=== PATIENT | female | born 2000 | race Caucasian/White ===

== ENCOUNTER 2020-08-19 07:41 | Emergency (ER) | payer MEDICAID ==
[2020-08-19] MEDS ORDERED: ALBUTEROL 1 PUFF INH STA (08:11)
[2020-08-19] MEDS ORDERED: predniSONE 20 MG TABLET PO STA (08:24)
--- NOTE | 2020-08-19 09:07 | ED Physician Documentation ---
History of Present Illness - Stated complaint Stated Complaint: SOA/CONGESTION - Chief complaint Chief Complaint: Heent - History obtained from History obtained from: Patient - History of Present Illness Pain level max: 0 Pain level now: 0 - Additonal information Additional information: 19-year-old female with a history of asthma presents to the emergency department with increasing wheezing over the past few days. She states she had had issues for the past 2 years. Mild cough. No fevers. The cough has been for 2 to 3 months. She states that she does smoke and vape. Nothing makes it better or worse. She is out of her albuterol inhaler and albuterol for nebulizer. Denies any possibility of . Review of Systems Constitutional: denies: Fever, Chills Respiratory: denies: Cough GI: denies: Nausea, Vomiting, Diarrhea Skin: denies: Rash Musculoskeletal: denies: Neck pain, Back pain Neurologic: denies: Headache PD PAST MEDICAL HISTORY - Past Medical History Past Medical History: Yes Respiratory: Asthma - Present Medications Home Medications: Ambulatory Orders Medication Instructions Recorded Confirmed Albuterol 2.5 mg INH Q4H PRN #30 ml 08/19/20 Albuterol Sulf [Ventolin Hfa 1 - 2 puffs INH Q4HR PRN #1 inhaler 08/19/20 Inhaler] predniSONE [Deltasone] 10 mg PO [id number] #42 tab 08/19/20 - Allergies Allergies/Adverse Reactions: Allergies Allergy/AdvReac Type Severity Reaction Status Date / Time No Known Drug Allergies Allergy Verified 08/19/20 07:51 - Social History Does the pt smoke?: No Smoking Status: Never smoker PD ED PE NORMAL - Vitals Vital signs reviewed: Yes - General General: Alert and oriented X 3, No acute distress, Well developed/nourished - HEENT HEENT: Moist mucous membranes, Other (Normal phonation. No stridor) - Neck Neck: Supple, no meningeal sign - Cardiac Cardiac: RRR, Strong equal pulses - Respiratory Respiratory: No respiratory distress, Other (Diffuse wheezing bilaterally) - Abdomen Abdomen: Soft, Non tender, Non distended - Derm Derm: Warm and dry - Extremities Extremities: No edema - Neuro Neuro: Alert and oriented X 3 - Psych Psych: Normal mood, Normal affect Results - Vitals Vitals: Vital Signs - 24 hr 08/19/20 08/19/20 08/19/20 07:48 08:30 10:27 Temperature 36.5 C 36.3 C L Heart Rate 124 H 104 H 88 Respiratory 20 20 19 Rate Blood Pressure 150/135 H 95/67 O2 Saturation 95 100 Oxygen O2 Source Room air - Rads (name of study) Chest x-ray Radiology: Prelim report reviewed, EMP read contemporaneously, See rad report PD MEDICAL DECISION MAKING - ED course Complexity details: reviewed results, re-evaluated patient, considered differential, d/w patient ED course: No acute findings on x-ray. Feels much better after steroids and albuterol treatment. Will refill an inhaler for her and prescribe albuterol for her nebulizer. We will place her on a 10-day steroid taper as well. Patient counseled regarding signs and symptoms for which I believe and urgent re- evaluation would be necessary. Patient with good understanding of and agreement to plan and is comfortable going home at this time This document was made in part using voice recognition software. While efforts are made to proofread this document, sound alike and grammatical errors may occur. Departure - Departure Disposition: 01 Home, Self Care Clinical Impression: Asthma exacerbation Qualifiers: Asthma severity: unspecified severity Asthma persistence: unspecified Qualified Code(s): J45.901 - Unspecified asthma with (acute) exacerbation Condition: Good Instructions: ED Reactive Airway Disease Follow-Up: your,doctor in 1 week [Other] Prescriptions: Albuterol Sulf [Ventolin Hfa Inhaler] 1 - 2 puffs INH Q4HR PRN #1 inhaler PRN Reason: Shortness Of Air/Wheezing Albuterol 2.5 mg INH Q4H PRN #30 ml PRN Reason: Wheezing predniSONE [Deltasone] 10 mg PO [id number] #42 tab Comments: Patient's as prescribed. Return if you worsen. Follow-up with your doctor for further care. Discharge Date/Time: 08/19/20 10:27
[2020-08-19 10:29] VITALS: BP 95/67
--- NOTE | 2020-08-19 10:41 | XRAY Report ---
PROCEDURE: Chest 2 View X-Ray INDICATIONS: wheezing, cough TECHNIQUE: 2 views of the chest. COMPARISON: None. FINDINGS: Surgical changes and devices: None. Lungs and pleura: No pleural effusions or pneumothorax. Lungs are clear. Mediastinum: Mediastinal contours are normal. Heart size is normal. Bones and chest wall: No suspicious bony abnormalities. Soft tissues appear unremarkable. IMPRESSION: No acute cardiopulmonary abnormality. Reviewed by: Mulugeta Tatum MD on 08/19/2020 10:40 AM [facility] Approved by: Mulugeta Tatum MD on 08/19/2020 10:40 AM [facility] Station ID: [id number]
== END 2020-08-19 10:27 | disposition home or self-care (01) ==
LOC: ED 07:41
DX: J45.901 Unspecified asthma with (acute) exacerbation (principal); F17.290 Nicotine dependence, other tobacco product, uncomplicated; Z20.822 Contact with and (suspected) exposure to COVID-19
CPT/HCPCS: 71046; 87635; 94640; 99284; J7512

== ENCOUNTER 2021-08-02 16:21 | Inpatient (IN) | payer MEDICAID ==
[2021-08-02 17:29] LABS: RUPTURE OF MEMBRANES PLUS POSITIVE (NEGATIVE)
--- NOTE | 2021-08-02 17:52 | HISTORY & PHYSICAL EXAMINATION ---
Admit History - Visit Reason Visit Reason: Contractions - : 2 Parity: 0 : 1 Care: positive: Other ([place], [facility]) Smoking Status: Former smoker - Mother's Labs Mother's Blood Type: positive: O Mother's RH: positive: Positive GBS: positive: Group B Step Negative - Other Maternal History Other Maternal History: HPI: 20-year-old at 39 weeks 2 days gestation by 20-week ultrasound per outside records from [place]. She presents today with contractions that started yesterday. She has not timing them, but she says they happen every several minutes. She has good movement. Small amount of leaking fluid, questionable whether this is water or urine. She thinks she started feeling this sometime yesterday afternoon. No GUNN/BV or RUQP. No vaginal bleeding. Denies nausea and vomiting. Denies urinary urgency or dysuria. All other symptoms reviewed and were negative except per HPI. Course Limited care, initially at [facility] then follow-up in [place]. Was admitted for drug detox in the middle of her and was discharged several weeks ago. Dating ultrasound 20 weeks 0 days labs RPR: Nonreactive Syphilis: Nonreactive HBsAg: Negative HIV: Negative GC/CT: Negative/negative GBS: Negative PMH Mild, intermittent asthma PSH Denies OB History 1. SAB SH Recent relapse with heroin, last use yesterday. Methamphetamine use several da ys ago. Planning on inpatient rehab after baby is born. Former smoker. No current alcohol use. Currently homeless, living with a friend. Father the baby is not involved. Family History Denies pertinent history Allergies Denies allergy Medications Albuterol PRN vitamins Ferrous sulfate Physical exam: General: Alert, oriented, no acute distress Head: Normal cephalic atraumatic Eyes: PERRLA, extraocular motions intact. Respiratory: Normal rate of respiration. No accessory muscle use, normal respiratory effort. Cardiovascular: Regular rate and rhythm Abdomen: Gravid, nontender, nondistended Extremities: Normal range of motion Neuro: Oriented x3. Normal movements Psych: Appropriate mood and affect. Normal judgment and insight SVE: 4/80/-3 FHT: 130 bpm baseline, moderate variability, accelerations present, No decelerations [place]: Occasional Labs ROM plus: Positive Plan 20-year-old at 39 weeks 2 days gestation by 20-week ultrasound admitted for term labor/SROM 1. Term labor -Admit to L&D, admit labs, epidural at patient's request, anticipate -Continous monitoring. 2. SROM -Questionable when this happened, possibly prolonged rupture, no signs of compromise at this time 3. Gestational hypertension -Elevated previously in records. Today is 132/91, but actively laboring. -CBC, CMP, Urine protein to creatinine ratio ordered 3. Opioid use disorder -Currently taking Suboxone 8 mg twice daily -We will check with pharmacy for dosing. Patient does have her own supply for labeling. -Did relapse on heroin. Last use yesterday. -Plan for inpatient treatment after baby is born. -Patient consented to urine tox screen. This is pending at this time. 4. Methamphetamine abuse -Last dose several days ago. Infrequent use. Has been trying to quit 5. Mild, intermittent asthma -Albuterol as needed 6. Homelessness -Currently staying with friend 7. Limited care 8. Recent Covid infection -Tested positive 07/20/2021 9. Anemia: Hematocrit on 06/16/2021 of 33.7. Admit labs pending. Meds/Allgy - Home Medications Home Medications: Ambulatory Orders Medication Instructions Recorded Confirmed Albuterol 2.5 mg INH Q4H PRN #30 ml 08/19/20 Albuterol Sulf [Ventolin Hfa 1 - 2 puffs INH Q4HR PRN #1 inhaler 08/19/20 Inhaler] predniSONE [Deltasone] 10 mg PO [id number] #42 tab 08/19/20 - Allergies Allergies/Adverse Reactions: Allergies Allergy/AdvReac Type Severity Reaction Status Date / Time No Known Drug Allergies Allergy Verified 08/19/20 07:51 Physical - Abdominal Exam Vital Signs: Temp Pulse Resp BP Pulse Ox 98 F 104 H 18 137/85 H 08/02/21 16:34 08/02/21 16:34 08/02/21 16:34 08/02/21 16:45
[2021-08-02] MEDS ORDERED: TERBUTALINE 1 MG/ML VIAL SUBQ PRN (18:15)
[2021-08-02] MEDS ORDERED: LIDOCAINE-MPF 1% 30 ML VIAL ID PRN (18:15)
[2021-08-02] MEDS ORDERED: CARBOPROST TROMETHAMINE 250 MCG/ML AMP IM PRN (18:15)
[2021-08-02] MEDS ORDERED: SODIUM CHLORIDE FLUSH 0.9% 10 ML SYRINGE IVP PRN (18:15)
[2021-08-02] MEDS ORDERED: LABETALOL 20 MG/4 ML SYRINGE IVP PRN ×2 (18:15)
[2021-08-02] MEDS ORDERED: miSOPROStoL 200 MCG TABLET PR PRN (18:15)
[2021-08-02] MEDS ORDERED: METHYLERGONOVINE 0.2 MG/ML VIAL IM PRN (18:15)
[2021-08-02] MEDS ORDERED: miSOPROStoL 200 MCG TABLET BC PRN (18:15)
[2021-08-02] MEDS ORDERED: TRANEXAMIC ACID IN NACL 1,000 MG/100 ML BAG IV PRN (18:15)
[2021-08-02] MEDS ORDERED: hydrALAZINE INJ 20 MG/ML VIAL IVP PRN (18:15)
[2021-08-02] MEDS ORDERED: OXYTOCIN 10 UNIT/ML VIAL IM PRN (18:15)
[2021-08-02] MEDS ORDERED: ONDANSETRON 4 MG/2 ML VIAL IVP PRN ×2 (18:15→20:49)
[2021-08-02] MEDS ORDERED: OXYTOCIN/SODIUM CHLORIDE 500 ML IV PRN (18:15)
[2021-08-02 18:26] LABS: MUDS CUTOFF CONCENTRATIONS CUTOFF CONC BELOW:
[2021-08-02 18:27] LABS: BASOPHILS % (AUTO) 0.2 %; EOSINOPHILS # (AUTO) 0.1 10^3/uL (0.0-0.7); EOSINOPHILS % (AUTO) 0.6 %; HCT - HEMATOCRIT 35.4 % (37.0-47.0); HGB - HEMOGLOBIN 11.4 g/dL (12.0-16.0); LYMPHOCYTES # (AUTO) 1.2 10^3/uL (1.5-3.5); LYMPHOCYTES % (AUTO) 9.6 %; MEAN CORPUSCULAR HEMOGLOBIN 29.2 pg (27.0-31.0); MEAN CORPUSCULAR HGB CONC 32.2 g/dL (32.0-36.0); MEAN CORPUSCULAR VOLUME 90.5 fL (81.0-99.0); MONOCYTES # (AUTO) 0.8 10^3/uL (0.0-1.0); MONOCYTES % (AUTO) 6.1 %; NEUTROPHILS # (AUTO) 10.4 10^3/uL (1.5-6.6); NEUTROPHILS % (AUTO) 83.2 %; PLT - PLATELET COUNT 196 10^3/uL (130-450); RED BLOOD COUNT 3.91 10^6/uL (4.20-5.40); RED CELL DISTRIBUTION WIDTH 18.9 % (12.0-15.0); WHITE BLOOD COUNT 12.4 x10^3/uL (4.8-10.8)
[2021-08-02] MEDS: fentaNYL 100 MCG/2 ML VIAL IVP PRN (18:42)
[2021-08-02 18:49] LABS: ALBUMIN 2.5 g/dL (3.2-5.5); ALBUMIN/GLOBULIN RATIO 0.7 (1.0-2.2); BILIRUBIN,TOTAL 0.3 mg/dL (0.2-1.0); CALCIUM 8.8 mg/dL (8.5-10.3); CREATININE 0.5 mg/dL (0.4-1.0); POTASSIUM 3.8 mmol/L (3.5-5.0)
[2021-08-02 18:52] LABS: CREATININE,URINE 99.8 mg/dL; PROTEIN/CREATININE RATIO,URINE 0.9 (<=0.2)
[2021-08-02 18:54] LABS: AMPHETAMINE SCREEN,URINE POSITIVE (NEGATIVE); COCAINE SCREEN URINE NEGATIVE (NEGATIVE); METHAMPHETAMINES SCREEN, URINE POSITIVE (NEGATIVE); OPIATE SCREEN, URINE POSITIVE (NEGATIVE); THC CANNABINOID SCREEN, URINE NEGATIVE (NEGATIVE)
[2021-08-02 18:55] LABS: BARBITURATE SCREEN,UR NEGATIVE (NEGATIVE); BENZODIAZEPINES SCREEN, URINE NEGATIVE (NEGATIVE); METHADONE SCREEN, URINE NEGATIVE (NEGATIVE); OXYCODONE SCREEN, URINE NEGATIVE (NEGATIVE); PROPOXYPHENE SCREEN, URINE NEGATIVE (NEGATIVE); TRICYCLIC ANTIDEPRESSANT,URINE NEGATIVE (NEGATIVE)
[2021-08-02] MEDS ORDERED: LACTATED RINGERS 1,000 ML IV SCH (19:00)
[2021-08-02] MEDS ORDERED: SODIUM CHLORIDE FLUSH 0.9% 10 ML SYRINGE IVP SCH (19:00)
[2021-08-02] MEDS ORDERED: ROPIVACAINE 0.2% 200 MG/100 ML BAG EP ONE (20:08)
--- NOTE | 2021-08-02 20:32 | PROVIDER PROGRESS NOTE ---
Labor Progress Note - Uterine Monitoring Uterine Monitoring Mode: positive: External toco Contraction Frequency (min/apart): 6-8 minutes, but difficult to pickup. Contraction Intensity: positive: Moderate Uterine Resting Tone: positive: Soft - Monitoring Monitor Mode: positive: External ultrasound Heart Rate Baseline: 130 Heart Rate Variability: positive: Absent; amplitude undetectable Accelerations: positive: Present, 15x15 Decelerations: positive: Variable Strip Review: positive: Category II - Vaginal Exam Dilation (in cm): 5 Effacement (%): 80 Station: -3 - Labor Progress Note Labor Progress Note/Additional Text: Overall category one. Had one random variable deceleration. Overall reassuring. Getting epidural for pain control. Patient positive for multiple substances. Meets criteria for preeclampsia by blood pressure and urine protein to creatinine ratio. Likely compounded by drug use. Will start oxytocin if she stops progressing as contractions are rather spaced.
[2021-08-02] MEDS ORDERED: diphenhydrAMINE INJ 50 MG/ML VIAL IVP PRN (20:49)
[2021-08-02] MEDS ORDERED: ROPIVACAINE 0.2% 200 MG/100 ML BAG EP PRN (20:49)
[2021-08-02] MEDS ORDERED: NALBUPHINE 10 MG/ML AMP IVP PRN (20:49)
[2021-08-02] MEDS ORDERED: NALOXONE 0.4 MG/ML VIAL IVP PRN (20:49)
--- NOTE | 2021-08-02 20:54 | ANESTHESIA ---
Pre-Anesthesia VS, & Labs - Diagnosis labor - Procedure epidural Vital Signs: Temp Pulse Resp BP Pulse Ox 36.4 C L 104 H 18 137/85 H 08/02/21 18:20 08/02/21 16:34 08/02/21 16:34 08/02/21 16:45 Height: 5 ft 7 in Weight (kg): 86.183 kg Body Mass Index: 29.7 BMI Classification: Overweight - NPO Other (clears) - Is Patient ?: Yes - Lab Results Current Lab Results: Laboratory Tests 08/02/21 18:26: Sodium 135, Potassium 3.8, Chloride 103, Carbon Dioxide 24, Anion Gap 8.0, BUN 8, Creatinine 0.5, Estimated GFR (MDRD) 154, Glucose 109 H, Calcium 8.8, Total Bilirubin 0.3, AST 18, ALT 14, Alkaline Phosphatase 168 H, Total Protein 6.0 L, Albumin 2.5 L, Globulin 3.5, Albumin/Globulin Ratio 0.7 L 08/02/21 18:20: Urine Opiates Screen POSITIVE H, Ur Oxycodone Screen NEGATIVE, Urine Methadone Screen NEGATIVE, Ur Propoxyphene Screen NEGATIVE, Ur Barbiturate s Screen NEGATIVE, Ur Tricyclics Screen NEGATIVE, Ur Phencyclidine Scrn NEGATIVE, Ur Amphetamine Screen POSITIVE H, U Methamphetamines Scrn POSITIVE H, U Benzodiazepines Scrn NEGATIVE, Urine Cocaine Screen NEGATIVE, U Cannabinoids Screen NEGATIVE 08/02/21 18:00: Blood Type O POSITIVE, Antibody Screen NEGATIVE 08/02/21 18:00: WBC 12.4 H, RBC 3.91 L, Hgb 11.4 L, Hct 35.4 L, MCV 90.5, MCH 29.2, MCHC 32.2, RDW 18.9 H, Plt Count 196, MPV 11.0 H, Neut # (Auto) 10.4 H, Lymph # (Auto) 1.2 L, Banks # (Auto) 0.8, Eos # (Auto) 0.1, Baso # (Auto) 0.0, Absolute Nucleated RBC 0.00, Nucleated RBC % 0.0 Fish Bones: 08/02/21 18:00 08/02/21 18:26 Home Medications and Allergies Active Medications Carboprost Tromethamine (Carboprost Tromethamine 250 Mcg/Ml Amp) 250 mcg IM .ONCE PRN PRN Reason: Hemorrhage Diphenhydramine HCl (Diphenhydramine Inj 50 Mg/Ml Vial) 12.5 - 25 mg IVP Q6HR PRN PRN Reason: ITCHING Fentanyl (Fentanyl 100 Mcg/2 Ml Vial) 50 mcg IVP Q1H PRN PRN Reason: Severe Pain (score 7-10) Last Admin: 08/02/21 18:42 Dose: 50 mcg Hydralazine HCl (Hydralazine Inj 20 Mg/Ml Vial) 10 mg IVP .ONCE PRN; Protocol PRN Reason: Step 9 of Labetalol protocol Stop: 08/07/21 18:16 Oxytocin/Sodium Chloride (Pitocin/Sodium Chloride) 500 mls @ 999 mls/hr IV PRN PRN; Protocol PRN Reason: POST- HEMORR PREVENTION Tranexamic Acid (Tranexamic 1,000 Mg/100ml-Nacl) 1,000 mg in 100 mls @ 600 mls/hr IV Q30M PRN PRN Reason: EBL >1200mL and within 3hr Lactated Ringer's (Lr) 1,000 mls @ 125 mls/hr IV .Q8H ANALI Last Admin: 08/02/21 18:43 Dose: 125 mls/hr Ropivacaine (Naropin 0.2%) 200 mg in 100 mls @ 0 mls/hr EP PRN PRN; Protocol PRN Reason: PAIN Labetalol HCl (Labetalol 20 Mg/4 Ml Syringe) 20 - 80 mg IVP Q10M PRN; Protocol PRN Reason: SBP> or= 160 OR DBP> or= 110 Labetalol HCl (Labetalol 20 Mg/4 Ml Syringe) 20 mg IVP .ONCE PRN; Protocol PRN Reason: SBP> or= 160 OR DBP> or= 110 Lidocaine HCl (Lidocaine-Mpf 1% 30 Ml Vial) 30 ml ID ONCE PRN PRN Reason: PERINEAL REPAIR Stop: 08/03/21 18:16 Methylergonovine Maleate (Methylergonovine 0.2 Mg/Ml Vial) 0.2 mg IM .ONCE PRN PRN Reason: Hemorrhage Misoprostol (Misoprostol 200 Mcg Tablet) 600 mcg BC .ONCE PRN PRN Reason: Hemorrhage Misoprostol (Misoprostol 200 Mcg Tablet) 800 mcg DC .ONCE PRN PRN Reason: Hemorrhage Nalbuphine HCl (Nalbuphine 10 Mg/Ml Amp) 2.5 - 5 mg IVP Q4H PRN PRN Reason: ITCHING Naloxone HCl (Naloxone 0.4 Mg/Ml Vial) 0.1 mg IVP Q2M PRN PRN Reason: RR<8 Ondansetron HCl (Ondansetron 4 Mg/2 Ml Vial) 4 mg IVP PRN PRN PRN Reason: Nausea / Vomiting Ondansetron HCl (Ondansetron 4 Mg/2 Ml Vial) 4 mg IVP Q6HR PRN PRN Reason: Nausea / Vomiting Oxytocin (Oxytocin 10 Unit/Ml Vial) 10 unit IM .ONCE PRN PRN Reason: Step One if no IV access. Sodium Chloride (Sodium Chloride Flush 0.9% 10 Ml Syringe) 10 ml IVP PRN PRN PRN Reason: NEEDED PER PROVIDER ORDERS Sodium Chloride (Sodium Chloride Flush 0.9% 10 Ml Syringe) 10 ml IVP Q8H ANALI Terbutaline Sulfate (Terbutaline 1 Mg/Ml Vial) 0.25 mg SUBQ ONCE PRN PRN Reason: Tachystole Stop: 08/04/21 18:14 Allergies/Adverse Reactions: Allergies Allergy/AdvReac Type Severity Reaction Status Date / Time No Known Drug Allergies Allergy Verified 08/19/20 07:51 Anes History & Medical History - Anesthetic History Anesthesia Complications: reports: No previous complications - Medical History Cardiovascular: reports: None Pulmonary: reports: Asthma Smoking Status: Former smoker Psychosocial: reports: Amphetamine, Opioid History of Cancer?: No - Obstetrical History : 2 Parity: 0 Complications: reports: Other (Drug abuse) Exam General: Alert, Oriented x3, Cooperative Dental: WNL Mouth Opening: Greater than 4 Fingerbreadths Neck Mobility: Normal Mallampati classification: II Respiratory: Lungs clear Cardiovascular: Regular rate Cognitive Status: Within normal limits Plan Anesthesia Type: Epidural Consent for Procedure(s) Verified and Reviewed: Yes Code Status: Attempt Resuscitation ASA classification: 3-Severe systemic disease (active drug abuse) Is this case an emergency?: No
--- NOTE | 2021-08-02 23:22 | PROVIDER PROGRESS NOTE ---
Labor Progress Note - Uterine Monitoring Uterine Monitoring Mode: positive: External toco Contraction Frequency (min/apart): 5-8 Contraction Intensity: positive: Moderate Uterine Resting Tone: positive: Soft - Monitoring Monitor Mode: positive: External ultrasound Heart Rate Baseline: 130 Heart Rate Variability: positive: Moderate (6-25 bmp) Accelerations: positive: Present, 15x15 Decelerations: positive: Variable Strip Review: positive: Category II - Vaginal Exam Dilation (in cm): 6 Effacement (%): 90 Station: -2 Cervical Position: Midposition - Labor Progress Note Labor Progress Note/Additional Text: Patient currently sleeping. Did have some one. Followed by agitation approx imately 1 hour ago. Took her home Suboxone, but when advised not to take home medications, later said she spit this out. We did have trouble getting Suboxone ordered from the [employer] as it was not on formulary. Since then, have obtain access, but patient appears to have absorbed much of the pill as she is again somnolent and not showing signs of opioid withdrawal at this time. This may be compounded with methamphetamine withdrawal if she is indeed withdrawing from both. Blood pressure currently 121/69. Pulse of 88. Normal respirations 100% O2. Patient did have several significant variables while agitated, but since relaxing has normalized. Contractions still every 5 to 8 minutes, but changing her cervix. Will allow patient to rest and recheck in several hours. As long she is progressing, we will continue the course with expectant management.
--- NOTE | 2021-08-03 04:37 | PROVIDER PROGRESS NOTE ---
Labor Progress Note - Uterine Monitoring Uterine Monitoring Mode: positive: External toco Contraction Frequency (min/apart): 2-6 Contraction Intensity: positive: Strong Uterine Resting Tone: positive: Soft - Monitoring Monitor Mode: positive: External ultrasound Heart Rate Baseline: 130 Heart Rate Variability: positive: Moderate (6-25 bmp) Accelerations: positive: Present, 15x15 Decelerations: positive: Variable Strip Review: positive: Category II - Vaginal Exam Dilation (in cm): 7 Effacement (%): 90 Station: -2 - Labor Progress Note Labor Progress Note/Additional Text: Called from the physician call room to the patient's bedside for repetitive deep variable decelerations and prolonged deceleration. IUPC and FSE were placed. Patient recovered with position changes from the prolonged deceleration, but variable decelerations remain. Amnioinfusion was then started. She received 8 300 mL bolus followed by 200 mL/h. She appears to be having some resolution of her decelerations, but was counseled on the benefits as well as alternatives and the risks were discussed including but not limited to infection, bleeding that may require blood products or hysterectomy for life saving measures, injury to surrounding organs including but not limited to bowel, bladder, ureters, tubes and ovaries and/or the baby. Should injury occur it could require longer/additional surgery to repair. The patient denied having any questions. Will plan for recovery and resolution of variable decelerations and plan for oxytocin administration when appropriate for hypotonic uterine contractions.
[2021-08-03] MEDS ORDERED: OXYTOCIN/SODIUM CHLORIDE 500 ML IV SCH (06:00)
[2021-08-03] MEDS: fentaNYL 100 MCG/2 ML VIAL IVP PRN (06:24)
--- NOTE | 2021-08-03 07:05 | PROVIDER PROGRESS NOTE ---
Labor Progress Note - Uterine Monitoring Uterine Monitoring Mode: positive: IUPC Contraction Frequency (min/apart): 3-5 with occasional coupling Contraction Intensity: positive: Strong Uterine Resting Tone: positive: Soft - Monitoring Monitor Mode: positive: Spiral electrode Heart Rate Baseline: 135 Heart Rate Variability: positive: Moderate (6-25 bmp) Accelerations: positive: Present, 15x15 Decelerations: positive: Variable, Intermittent (<50% x20 min) Strip Review: positive: Category II - Labor Progress Note Labor Progress Note/Additional Text: Oxytocin currently at 4 milliunits/min. Patient resting comfortably. Did get somewhat agitated, likely wearing off from her previous drug use did get somewhat agitated during frequent position changes during variable decelerations with amnioinfusion until these subsided. Did receive 50mcg of fentanyl. Resting comfortably at this time.
[2021-08-03] MEDS ORDERED: SIMETHICONE CHEW 80 MG TABLET PO PRN (09:06)
[2021-08-03] MEDS ORDERED: HYDROCORTISONE 1% CREAM 28 GM TUBE PR PRN (09:06)
[2021-08-03] MEDS ORDERED: DOCUSATE SODIUM 100 MG CAPSULE PO PRN (09:06)
[2021-08-03] MEDS ORDERED: ONDANSETRON ODT 4 MG TABLET TL PRN (09:06)
--- NOTE | 2021-08-03 09:11 | DELIVERY NOTE ---
Delivery Note - Labor Labor: positive: Augmented by oxytocin - Infant Delivery Method Delivery Method: positive: Vacuum assist - Presentation Presentation: positive: Vertex - Nuchal Cord Nuchal Cord: positive: None - Vacuum Use Indication for Vacuum Use: positive: Shortening of 2nd stage for maternal benefit, Suspicion of immediate or potential compromise Type of Vacuum Cup: positive: Cup: Rigid Vacuum Extraction: positive: Successful Number of pop-offs: 0 (Less than one minute of application) - Episiotomy Type Episiotomy Type: positive: None - Laceration Laceration: positive: 2nd degree, Labial - Suture Suture Type: positive: Vicryl Suture Size: positive: 3-0 - Delivery Outcome Delivery Outcome: positive: Livebirth - : positive: Placed in direct skin contact with mother, [place] used [place] sex: positive: Female : Apgars 8/9 - Cord Cord: positive: 3 vessels - Placenta Placenta: positive: Intact, Expressed - Estimated Blood Loss Estimated Blood Loss (in cc): 118 - Post Delivery Events Post Delivery Events: positive: No post delivery events - Delivery Comments (Free Text/Narrative) Delivery Comments (Free Text/Narrative): STAGE I: 20-year-old admitted at 39 weeks 2 days gestation by 20-week ultrasound per outside records from [place]. She presents 08/02/21 with contractions that started 08/01/21. She had not been timing them, but she says they happen every several minutes. She has good movement. Small amount of leaking fluid, questionable whether this is water or urine. She thinks she started feeling this sometime around 08/01/21 afternoon. ROM+ positive on 08/02/21 afternoon. No GUNN/BV or RUQP. No vaginal bleeding. Denies nausea and vomiting. Denies urinary urgency or dysuria. Initial SVE: 4/80/-3. Initial EFM showed 130 bpm baseline, moderate variability, accelerations present, No decelerations. Tox screen positive for methamphetamines, amphetamines, opioids. Pitocin augmentation initiated with max dose of 5 mu/min. Epidural for pain management. EFM showed recurrent decelerations that were managed with position change and amnioinfusion. Both IUPC and FSE were in place. Tracing had periods of Category II interspersed with category I tracing. Patient was noted to be complete at 07:43. STAGE II: Patient started pushing at 7:48 am. Recurrent decels to the 50s were noted. Given recurrent decelerations, the decision was made to proceed with vacuum assisted delivery. Kiwi rigid cup vacuum was placed at 8:07. It was removed at 8:08. No pop-off. Infant delivered at 8:09 for BETTY presentation. Left shoulder was anterior and delivered without difficulty. Infant was delivered to maternal chest. Cord clamping was delayed until pulsations had ceased. Cord was then clamped x2 and cut. Segment was collected for Instat testing. Apgars were 8/9 and BW was 2924g. No nuchal cord was noted. Dr. Garcia of Pediatrics was present for delivery. STAGE III: Placenta delivered at 8:14 with manual expression. It was examined and found to be intact. Perineum was examined. Bilateral 2nd degree labial tears were noted. They were both repaired using 3-0 Vicryl in the usual sterile fashion in layers. Good hemostasis was noted. QBL 118 mL.
[2021-08-03] MEDS: BUPRENORPHINE/NALOXONE 8-2 MG TAB SL PRN ×2 (09:38→09:50)
[2021-08-03] MEDS: IBUPROFEN 600 MG TABLET PO SCH ×3 (10:19→23:02)
[2021-08-03] MEDS: ACETAMINOPHEN 500 MG TABLET PO SCH ×2 (10:19→18:18)
[2021-08-04] MEDS: ACETAMINOPHEN 500 MG TABLET PO SCH ×2 (04:58→12:31)
[2021-08-04] MEDS: BUPRENORPHINE/NALOXONE 8-2 MG TAB SL PRN (08:20)
--- NOTE | 2021-08-04 10:31 | Discharge Plan ---
Discharge Plan Problem Reviewed?: Yes Disposition: Home, Self Care Condition: Good Diet: Regular Activity Restrictions: Additional Comments (see below) Shower Restrictions: Yes (no tub baths or hot tubs) Additional Instructions or Follow Up instructions: Nothing in the vagina for 6 weeks: No intercourse, tampons, douching Call for: -Fever greater than 100.5 -Pain that does not improve with pain medication -Heavy bleeding in which you are soaking a pad an hour for 2 hours in a row -Pain in the legs (especially one sided), swelling in one leg and not the other, or difficulty/pain with breathing. No tub baths or hot tubs for 4 weeks DISCHARGE MEDICATIONS: Ibuprofen 600 mg by mouth every 6 hours as needed for pain Acetaminophen 500-1000 mg by mouth every 8 hours as needed for pain Docusate 100-200 mg by mouth twice a day as needed for constipation No Smoking: If you smoke, Please STOP! Call for help. Follow-up with: Marylou Rosario MD [Provider Admit Priv/Credential] -
--- NOTE | 2021-08-04 10:41 | DISCHARGE SUMMARY ---
Discharge Summary Admit Date: 08/02/21 Discharge Date: 08/04/21 Discharging Provider: Abraham Condition at Discharge: Good Discharge Disposition: 01 Home, Self Care - DIAGNOSES Admission Diagnoses: IUP at 39 wga Ruptured membranes Polysubstance use Discharge Diagnoses with Status of Each Condition: Same and delivery of term gestation Prolonged rupture of membranes - HPI History of Present Illness: Patient is a 20-year-old admitted at 39 weeks 2 days gestation by 20- week ultrasound per outside records from [place]. Had received the bulk of her care while at [facility] in-patient rehab services and has been actively participating in suboxone program. She presented 08/02/21 with contractions that started 08/01/21. She had not been timing them, but she says they happen every several minutes. She has good movement. Small amount of leaking fluid, questionable whether this is water or urine. She thinks she started feeling this sometime around 08/01/21 afternoon. ROM+ positive on 08/02/21 afternoon. No GUNN/BV or RUQP. No vaginal bleeding. Denies nausea and vomiting. Denies urinary urgency or dysuria. Initial SVE: 4/80/-3. Initial EFM showed 130 bpm baseline, moderate variability, accelerations present, No decelerations. - HOSPITAL COURSE Hospital Course: Patient was admitted in labor with ruptured membranes. Initial SVE as above. Intake labs show toxicology screen positive for methamphetamines, amphetamines, opioids. Pitocin augmentation initiated with max dose of 5 mu/min. Epidural for pain management. EFM showed recurrent decelerations that were managed with position change and amnioinfusion. Both IUPC and FSE were in place. Tracing had periods of Category II interspersed with category I tracing. Patient was noted to be complete at 07:43 on 08/03/21. Patient started pushing at 7:48 am. Recurrent decels to the 50s were noted. Given recurrent decelerations, the decision was made to proceed with vacuum assisted delivery. Kiwi rigid cup vacuum was placed at 8:07. It was removed at 8:08. No pop-off. delivered at 8:09 for BETTY presentation. Left shoulder was anterior and delivered without difficulty. was delivered to maternal chest. Cord clamping was delayed until pulsations had ceased. Cord was then clamped x2 and cut. Segment was collected for Instat testing. Apgars were 8/9 and BW was 2924g. No nuchal cord was noted. Dr. Garcia of Pediatrics was present for delivery. STAGE III: Placenta delivered at 8:14 with manual expression. It was examined and found to be intact. Perineum was examined. Bilateral 2nd degree labial tears were noted. They were both repaired using 3-0 Vicryl in the usual sterile fashion in layers. Good hemostasis was noted. QBL 118 mL. course was uncomplicated. By day #1, patient was meeting goals for discharge. was transferred to [place] [facility] Rh positive. Rubella immune - ALLERGIES Allergies/Adverse Reactions: Allergies Allergy/AdvReac Type Severity Reaction Status Date / Time No Known Drug Allergies Allergy Verified 08/19/20 07:51 - MEDICATIONS Home Medications: Ambulatory Orders Medication Instructions Recorded Confirmed Albuterol 2.5 mg INH Q4H PRN #30 ml 08/19/20 Albuterol Sulf [Ventolin Hfa 1 - 2 puffs INH Q4HR PRN #1 inhaler 08/19/20 Inhaler] predniSONE [Deltasone] 10 mg PO [id number] #42 tab 08/19/20 Acetaminophen [Acetaminophen Extra 1,000 mg PO Q8H PRN #60 tablet 08/04/21 Strength] Docusate Sodium 100Mg Capsule 100 - 200 mg PO BID PRN #60 cap 08/04/21 [Colace 100Mg Capsule] Ibuprofen [Motrin] 600 mg PO Q6H PRN #60 tab 08/04/21 - PHYSICAL EXAM AT DISCHARGE General Appearance: positive: No acute distress Neck: positive: Nml inspection Respiratory: positive: No respiratory distress Cardiovascular: positive: Other (RR) Peripheral Pulses: positive: 2+ Skin: positive: Color nml Extremities: positive: Non-tender, No pedal edema Neurologic/Psychiatric: positive: Oriented x3 - LABS Result Diagrams: 08/02/21 18:00 08/02/21 18:26 - FOLLOW UP Follow Up: [address] Rosario or Dr. Birmingham - TIME SPENT Time Spent in Discharge (Minutes): 30
[2021-08-04] MEDS: IBUPROFEN 600 MG TABLET PO SCH ×2 (12:31→12:32)
[2021-08-04 14:10] VITALS: BP 118/69
--- NOTE | 2021-08-04 16:22 | Labor Flowsheet ---
Labor Flowsheet Datetime Report Generated by CPN: 08/04/2021 16:21 Datetime: 08/04/2021 14:07 VITAL SIGNS NBP Sys/Rosario/Mean (mmHg): 118 : 69 : 80 Pulse: 84 Datetime: 08/04/2021 07:19 SpO2 (%): 100 Datetime: 08/03/2021 10:14 Stage of : Recovery Respirations: 15 Temperature (C): 36.7 Temperature Route: Oral PAIN Pain Scale: 3 Pain Presence: Intermittent Pain Location: Abdomen; Perineum Pain Relief Measures: Pain Medication Given; Comfort Measures Datetime: 08/03/2021 08:09 Comments: FHR 155 in between pushing, FHR down to the 70s vacuume applied. see charting Pushing Position: Pushing with Contractions Pushing Progress: Descent with Pushing Datetime: 08/03/2021 08:08 Vacuum: Off Datetime: 08/03/2021 08:00 UTERINE ACTIVITY Monitor Mode: Internal Frequency (min): 3 Quality: Strong Duration (sec): 50-70 Pattern: Normal: <= 5 Contractions in 10 Minutes Resting Tone (Palpate): Relaxed Intensity IUP (mmHg): 260 ASSESSMENT A Monitor Mode: Internal Scalp Electrode FHR Baseline Rate : 155 Variability: Moderate 6-25 bpm Accelerations: None Decelerations: Variable Actions for Decelerations: Side to Side Category: Category II I/O Interventions: Nevarez Discontinued Datetime: 08/03/2021 07:59 LaborFlag: Labor Datetime: 08/03/2021 07:56 STAGE 2 Pushing: Urge to Push Datetime: 08/03/2021 07:49 Membrane Comments: iupc removed by dr [email or web address] Datetime: 08/03/2021 07:45 Oxygen Method: Room Air Datetime: 08/03/2021 07:43 VAGINAL EXAM Dilatation (cm): 10.0 Exam by: dr [email or web address] Datetime: 08/03/2021 07:36 Pain Coping: Breathing Through Contractions Datetime: 08/03/2021 07:29 FHR Baseline Changes: No Baseline Change Datetime: 08/03/2021 07:27 Medication Comments: new LR bag hung for amniotic fluid bolus Datetime: 08/03/2021 07:22 MEDICATIONS Pitocin (milliunits): Increased to @ 5 Datetime: 08/03/2021 07:01 Resting Tone IUP (mmHg): 5 Medina Units (mmHg): 250 Datetime: 08/03/2021 06:46 Patient Position/Activity: Left Extreme Patient Care Comments: peanut ball Datetime: 08/03/2021 06:22 Analgesics/Sedatives: Fentanyl (mcg) @ 50 Datetime: 08/03/2021 06:12 Vaginal Exam Comments: unchanged Datetime: 08/03/2021 06:01 Contraction Comments: 210 Datetime: 08/03/2021 04:10 Monitor Interventions for UA: IUPC Inserted Datetime: 08/03/2021 03:53 Monitor Interventions for FHR: FSE Applied Datetime: 08/03/2021 03:44 Communication Comments: Dr. Birmingham on unit, at bedside to evaluate pt, order IUPC and amnioinfusi on Datetime: 08/03/2021 02:44 Effacement (%): 90 Station: -1 Datetime: 08/03/2021 00:35 Vaginal Bleeding: Normal Show Cervix, Consistency: Soft Cervix, Position: Midposition Datetime: 08/02/2021 22:13 Provider Reviewed Strip: No COMMUNICATION Communication: Call/Page Returned by Provider Provider Notified (Name): Dr. Birmingham Notification Reason: Status Update; Status Datetime: 08/02/2021 21:30 Membrane Status: Ruptured Amniotic Fluid Color: Clear Amniotic Fluid Amount: None Amniotic Fluid Odor: Normal Presentation 'A': Cephalic PRICE'S SCORE Dilatation (cm): 5 or greater cms Effacement: >80_ effaced Station: minus 2 Consistency: Soft Position: Midposition Total Price's Score: 10 : 9-14 = Usually no failure for induction MATERNAL ASSESSMENT Level of Consciousness: Drowsy Headache: Denies Breath Sounds, Left: Clear and Equal Breath Sounds, Right: Clear and Equal Nausea/Vomiting: Denies RUQ Epigastric Pain: Denies Hygiene: [place] Care Datetime: 08/02/2021 20:30 Epidural Procedure: Completed Epidural Procedure Other: Pump Started Datetime: 08/02/2021 20:20 ANESTHESIA Anesthesia Plans: Epidural Datetime: 08/02/2021 20:08 Consults: Anesthesia PROCEDURE TIME OUT Procedure Verify: Correct Patient Identity; Correct Side and Site are Marked; Accurate Procedure Co nsent Form; Agreement on Procedure to be Done; Correct Patient Position Epidural Positioning: Sitting Datetime: 08/02/2021 20:00 Pain Type: Sharp; Contraction Datetime: 08/02/2021 19:30 Membranes Rupture Method: Spontaneous PATIENT CARE IV/Blood Work: IV Started; Labs Drawn with IV Start TEACHING Plan of Care: Plan of Care Discussed; Labor Pain Management: Epidural
== END 2021-08-04 15:50 | disposition home or self-care (01) | DRG 806 ==
LOC: WFO 16:21 → FBP 16:22 → WFO 18:14 → FBP 18:15
PROVIDERS: ADMIT Obstetrics & Gynecology; ATTEND Obstetrics & Gynecology
PROC: 10D07Z6 Extraction of Products of Conception, Vacuum, Via Natural or Artificial Opening (ICD-10-PCS; principal; 2021-08-03)
PROC: 0KQM0ZZ Repair Perineum Muscle, Open Approach (ICD-10-PCS; 2021-08-03)
PROC: 10H073Z Insertion of Monitoring Electrode into Products of Conception, Via Natural or Artificial Opening (ICD-10-PCS; 2021-08-03)
PROC: 4A1H74Z Monitoring of Products of Conception, Cardiac Electrical Activity, Via Natural or Artificial Opening (ICD-10-PCS; 2021-08-03)
DX: O70.1 Second degree perineal laceration during delivery (principal); O99.324 Drug use complicating childbirth; Z37.0 Single live birth; Z3A.39 39 weeks gestation of pregnancy; O76 Abnormality in fetal heart rate and rhythm complicating labor and delivery; O99.52 Diseases of the respiratory system complicating childbirth; J45.20 Mild intermittent asthma, uncomplicated; F15.10 Other stimulant abuse, uncomplicated; O99.02 Anemia complicating childbirth; Z59.01 Sheltered homelessness; Z86.16 Personal history of COVID-19; Z87.891 Personal history of nicotine dependence
CPT/HCPCS: 59025; 80053; 80306; 82570; 84112; 84156; 85025; 86850; 86900; 86901; 99215; A9270; J2210; J7120